=== PATIENT | female | born 1965 | race Caucasian/White ===

== ENCOUNTER 2016-04-26 09:46 | Emergency (ER) | payer OTHER ==
[~2016-04-26] VITALS: Ht 152.4 cm; Wt 102.9 kg
[~2016-04-26 09:46] MED LIST: Aspirin E.C. PO; FENOFIBRATE160 M1 PO; FISH OIL 1,0001 EAC7 PO; FLUOXETINE HCL20 MG PO; LEVOCETIRIZINE D5 MG PO; MONTELUKAST SOD10 MG PO; MULTIPLE VITAM1 EACH PO; OMEGA 3-6-9 CO1 EACH PO; PRILOSEC OTC20 MG PO; PROZAC10 MG PO; SIMVASTATIN20 MG PO; ST. JOSEPH ASPI81 MG PO; TOPAMAX25 MG PO; TOPIRAMATE100 MG PO; TOPIRAMATE25 MG PO; XARELTO15 MG PO; XARELTO20 MG PO
[2016-04-26] MEDS ORDERED: XARELTO20 MG PO (11:03)
[2016-04-26] MEDS ORDERED: FIORICET 50-301 EACH PO (13:14)
[2016-04-26 13:30] VITALS: BP 138/80
== END 2016-04-26 13:31 | disposition home or self-care (01) ==
LOC: EME 09:46
DX: S06.0X0A Concussion without loss of consciousness, initial encounter (principal); W07.XXXA Fall from chair, initial encounter; Y99.0 Civilian activity done for income or pay
CPT/HCPCS: 70450; 99281; 99283

== ENCOUNTER → 2016-09-07 | Outpatient (CLI) | payer OTHER ==
[~2016-09-07] MED LIST changes: +FIORICET 50-301 EACH PO
== END | disposition home or self-care (01) ==
LOC: CDC 08:11
DX: R94.31 Abnormal electrocardiogram [ECG] [EKG] (principal)
CPT/HCPCS: 93000

== ENCOUNTER 2016-09-23 05:34 | Day surgery (SDC) | payer OTHER ==
[~2016-09-23] VITALS: Ht 152.4 cm; Wt 102.1 kg
[~2016-09-23 05:34] MED LIST changes: +XYZAL5 MG PO
[2016-09-23 06:38] VITALS: BP 133/88
[2016-09-23] MEDS ORDERED: PERCOCET 5/31 TABLET PO (08:19)
[2016-09-23 09:30] VITALS: BP 131/69
[2016-09-23 10:30] VITALS: BP 108/65
[2016-09-23 11:18] VITALS: BP 114/69
== END 2016-09-23 11:23 | disposition home or self-care (01) ==
LOC: SDC 05:34 → EDSTATUS 08:07 → SDC 08:07 → 2SOUTH 08:07 → SDC 11:23
PROC: 0FT44ZZ Resection of Gallbladder, Percutaneous Endoscopic Approach (ICD-10-PCS; principal; 2016-09-23)
DX: K80.10 Calculus of gallbladder with chronic cholecystitis without obstruction (principal); E66.9 Obesity, unspecified; Z68.41 Body mass index [BMI] 40.0-44.9, adult; K82.9 Disease of gallbladder, unspecified; K21.9 Gastro-esophageal reflux disease without esophagitis
CPT/HCPCS: 88304; J0131; J0330; J0690; J1100; J1170; J1885; J2250; J2405; J2710; J3010